=== PATIENT | female | born 2000 | race Caucasian/White ===

== ENCOUNTER 2021-11-22 00:59 | Observation (INO) ==
[2021-11-22] MEDS ORDERED: 0.9 % Sodium Chloride 1,000 ML IV ONE (01:39)
[2021-11-22 02:16] LABS: Bacteria,Urine Few per hpf (None-Few); Bilirubin,Urine Negative (Negative); Blood,Urine Negative (Negative); Clarity,Urine Turbid (Clear); Color,Urine Yellow (Yellow); Glucose,Urine (UA) Normal (Normal); Ketones,Urine >150 mg/dL (Negative); Leukocyte Esterase,Urine Moderate (Negative); Mucus,Urine Few per lpf (None-Few); Nitrite,Urine Negative (Negative); Protein,Urine 70 mg/dL (Neg-Trace); Squamous Epithelial Cell,Urine Moderate per hpf (None-Few); Urobilinogen,Urine Normal (Normal); WBC,Urine 15-30 per hpf (0-3)
[2021-11-22 02:18] LABS: Basophils % 0.2 %; Hematocrit 35.7 % (35.3-44.9); Hemoglobin 12.4 g/dL (11.5-15.4); Immature Granulocytes % 0.6 % (0-4); Lymphocytes # 0.2 K/mcL (0.6-4.6); Lymphocytes % 1.9 %; Mean Corpuscular HGB Conc 34.7 g/dL (31.6-35.5); Mean Corpuscular Hemoglobin 30.2 pg (28.0-33.3); Mean Corpuscular Volume 87.1 fL (83.0-100.0); Mean Platelet Volume 12.5 fL (9.4-12.4); Monocytes % 8.3 %; Platelet Count 104 K/mcL (140-400); Red Cell Distribution Width 12.8 % (11.5-14.5); White Blood Count 12.3 K/mcL (4.3-11.1)
[2021-11-22 02:35] LABS: Alanine Aminotransferase 19 Units/L (7-52); Albumin 4.1 g/dL (3.5-5.7); Albumin/Globulin Ratio 1.2 (1.1-2.2); Alkaline Phosphatase 52 Units/L (34-104); Aspartate Amino Transferase 23 Units/L (13-39); BUN/Creatinine Ratio 11 (6-26); Bilirubin,Total 0.4 mg/dL (0.3-1.0); Blood Urea Nitrogen 6 mg/dL (6-20); Calcium 9.3 mg/dL (8.6-10.3); Carbon Dioxide 19 mEq/L (23-29); Chloride 100 mEq/L (98-107); Globulin 3.3 g/dL (2.4-3.5); Glucose 102 mg/dL (70-105); Osmolality,Calculated 272 (280-300); Potassium 3.2 mEq/L (3.5-5.1); Sodium 132 mEq/L (136-145); Total Protein 7.4 g/dL (6.4-8.9); eGFR For African Americans > 60 (> 60); eGFR For Non-African Americans > 60 (> 60)
[2021-11-22] MEDS ORDERED: D5% in Lactated Ringers 1,000 ML IVC ONE (03:15)
[2021-11-22 03:27] LABS: Troponin I < 0.03 ng/mL (< 0.04)
[2021-11-22] MEDS ORDERED: D5% in 0.9% NACL 1,000 ML IVC SCH (03:30)
[2021-11-22] MEDS ORDERED: cefTRIAXone 1,000 MG in Water for inj. (sterile) 10 ML IVP ONE (03:59)
[2021-11-22 04:59] LABS: Thyroid Stimulating Hormone 0.485 mcIU/mL (0.340-5.600)
[2021-11-22] MEDS ORDERED: cefTRIAXone 1,000 MG in 0.9 % Sodium Chloride Mini Bag 100 ML IVPB ONE (05:00)
[2021-11-22 05:41] VITALS: BP 104/68; TEMP 98.3; O2SAT 100
[2021-11-22] MEDS ORDERED: Ringers Solution, Lactated 1,000 ML ONE (05:44)
[2021-11-22 10:20] VITALS: PULSE 112
== END 2021-11-22 14:58 | disposition home or self-care (01) ==
LOC: 1NENUOBS 00:59 → EMEROOARM 00:59 → 1NENUOBS 05:18
PROVIDERS: ADMIT Student in an Organized Health Care Education/Training Program; ATTEND Student in an Organized Health Care Education/Training Program

== ENCOUNTER 2022-04-11 08:03 | Inpatient (IN) ==
[2022-04-11] MEDS ORDERED: Naloxone 0.4 MG/ML INJ IVP PRN (08:21)
[2022-04-11] MEDS ORDERED: *HR* Nalbuphine 10 MG/ML AMPUL IV PRN (08:21)
[2022-04-11] MEDS ORDERED: Ondansetron 4 MG/2 ML VIAL IVP PRN (08:21)
[2022-04-11] MEDS ORDERED: miSOPROStoL 25 MCG TABLET PO PRN (08:21)
[2022-04-11] MEDS ORDERED: Lidocaine 1% 20 ML MDV INFILT PRN (08:21)
[2022-04-11] MEDS ORDERED: Metoclopramide 10 MG/2 ML VIAL IVP PRN (08:21)
[2022-04-11] MEDS ORDERED: Azithromycin 500 MG in 0.9 % Sodium Chloride 250 ML IVPB PRN (08:21)
[2022-04-11] MEDS ORDERED: Famotidine 20 MG/2 ML VIAL IVP PRN (08:21)
[2022-04-11] MEDS ORDERED: Oxytocin 30 UNIT/503 ML BAG IVC SCH (08:30)
[2022-04-11 09:05] LABS: Mean Corpuscular HGB Conc 33.7 g/dL (31.6-35.5)
[2022-04-11 09:06] LABS: Amphetamine Screen,Urine Negative ng/mL (Cutoff=1000); Barbiturate Screen,Urine Negative ng/mL (Cutoff=200); Basophils # 0.1 K/mcL (0.0-0.2); Basophils % 0.5 %; Benzodiazepines Screen,Urine Negative ng/mL (Cutoff=200); Cannabinoid Screen,Urine Negative ng/mL (Cutoff = 50); Cocaine Screen,Urine Negative ng/mL (Cutoff= 300); Eosinophils # 0.5 K/mcL (0.0-0.6); Eosinophils % 3.3 %; Hematocrit 40.7 % (35.3-44.9); Hemoglobin 13.7 g/dL (11.5-15.4); Immature Granulocytes % 1.1 % (0-4); Immature Platelets 34.1 % (1.1-6.1); Lymphocytes # 1.9 K/mcL (0.6-4.6); Lymphocytes % 13.5 %; Mean Corpuscular Hemoglobin 29.8 pg (28.0-33.3); Mean Corpuscular Volume 88.7 fL (83.0-100.0); Monocytes % 7.3 %; Neutrophils # 10.6 K/mcL (1.6-8.9); Opiate Screen,Urine Negative ng/mL (Cutoff=300); Phencyclidine Screen,Urine Negative ng/mL (Cutoff=25); Red Blood Count 4.59 M/mcL (3.82-4.97); Segmented Neutrophils % 74.3 %; White Blood Count 14.3 K/mcL (4.3-11.1)
[2022-04-11] MEDS ORDERED: EPHEDrine 50 MG/ML VIAL IVP PRN (09:33)
[2022-04-11] MEDS ORDERED: Epidural Premix (fent/bupiv) 110 ML EP SCH (09:45)
[2022-04-11] MEDS: Ringers Solution, Lactated 1,000 ML IVC SCH ×2 (14:37→18:00)
[2022-04-11] MEDS ORDERED: Ropivacaine/PF 0.2% 20 ML VIAL ONE (16:35)
[2022-04-11] MEDS ORDERED: *HR* FentaNYL (PF) 100 MCG/2 ML VIAL ONE (16:35)
[2022-04-12] MEDS ORDERED: Methylergonovine 0.2 MG/ML AMPUL IM ONE (03:41)
[2022-04-12] MEDS ORDERED: Lanolin 7 G OINT...G. TP PRN (05:52)
[2022-04-12] MEDS ORDERED: Acetaminophen 325 MG TABLET PO SCH (05:52)
[2022-04-12] MEDS ORDERED: Oxytocin 30 UNIT/503 ML BAG IVC SCH (05:52)
[2022-04-12] MEDS ORDERED: OXYTOCIN/RINGERS LACTATE 10 UNIT/166.6 ML BAG IVC ONE (05:52)
[2022-04-12] MEDS ORDERED: Ondansetron ODT 4 MG TAB.RAPDIS SL PRN (05:52)
[2022-04-12] MEDS ORDERED: Ibuprofen 600 MG TABLET PO SCH (06:40)
[2022-04-12] MEDS: Prenatal Vit/FA 1 EACH TABLET PO SCH (07:46)
[2022-04-12 20:13] VITALS: TEMP 98.4; O2SAT 99
[2022-04-12] MEDS: Benzocaine/Menthol 56 GM AEROSOL SPRAY TP PRN (20:41)
[2022-04-13 07:54] VITALS: BP 116/77; PULSE 72
[2022-04-13] MEDS: Benzocaine/Menthol 56 GM AEROSOL SPRAY TP PRN (10:15)
[2022-04-13] MEDS: Prenatal Vit/FA 1 EACH TABLET PO SCH (10:15)
== END 2022-04-13 14:00 | disposition home or self-care (01) | DRG 560 ==
LOC: 1NENULAB 08:03 → 1NENUOBS 04-12 05:29
PROVIDERS: ADMIT Advanced Practice Midwife; ATTEND Advanced Practice Midwife